=== PATIENT | female | born 1965 | race African-American/Black ===

== ENCOUNTER 2018-07-24 11:01 | Inpatient (IN) | payer OTHER ==
[2018-07-24 11:30] VITALS: BMI 19.5
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
[2018-07-24] MEDS ORDERED: LOPERAMIDE HCL 2 MG CAPSULE PO PRN (15:30)
[2018-07-24] MEDS ORDERED: NICOTINE POLACRILEX 4 MG GUM BC PRN (15:30)
[2018-07-24] MEDS ORDERED: MAGNESIUM CITRATE 300 ML BOTTLE PO PRN (15:30)
[2018-07-24] MEDS ORDERED: MENTHOL/PHENOL 1 EACH UD MM PRN (15:30)
[2018-07-24] MEDS ORDERED: MAGNESIUM HYDROX 2400MG/30ML ORAL SUSPENSION 30 ML CUP PO PRN (15:30)
[2018-07-24] MEDS ORDERED: chlordiazePOXIDE HCL 25 MG CAPSULE PO PRN (15:30)
[2018-07-24] MEDS ORDERED: IBUPROFEN 400 MG TABLET (FP) PO PRN (15:30)
[2018-07-24] MEDS ORDERED: P-EPHED 60MG/TRIPROLIDI 2.5MG TABLET PO PRN (15:30)
[2018-07-24] MEDS ORDERED: ACETAMINOPHEN 325 MG TABLET (FP) PO PRN (15:30)
[2018-07-24] MEDS ORDERED: MAG HYDROX/AL HYDROX/SIMETH 30 ML UNIT-DOSE CUP PO PRN (15:30)
[2018-07-24] MEDS ORDERED: hydrOXYzine PAMOATE 25 MG CAPSULE (FP) PO PRN (15:30)
[2018-07-24] MEDS ORDERED: METHADONE HCL 10 MG TABLET (FOR DETOX USE ONLY) PO ONE ×2 (16:45→23:00)
[2018-07-24] MEDS: chlordiazePOXIDE HCL 25 MG CAPSULE PO SCH ×2 (16:54→22:25)
[2018-07-24] MEDS ORDERED: MELATONIN 5 MG TABLETS PO PRN (22:00)
[2018-07-24] MEDS: THIAMINE HCL 100 MG TABLET (FP) PO SCH (22:24)
[2018-07-24] MEDS: guaiFENesin/D-METHORPHAN HB 10 ML UNIT-DOSE CUPS PO PRN (22:25)
[2018-07-25] MEDS: chlordiazePOXIDE HCL 25 MG CAPSULE PO SCH ×4 (06:36→22:44)
[2018-07-25] MEDS: ALBUTEROL SO4 8 GM HFA INHALER IH PRN ×3 (07:40→22:44)
[2018-07-25] MEDS ORDERED: METHADONE HCL 10 MG TABLET (FOR DETOX USE ONLY) PO SCH (10:00)
[2018-07-25 11:04] LABS: HEMATOCRIT 38.8 % (32.4-45.2); HEMOGLOBIN 13.2 GM/dL (10.7-15.3); MCH 30.8 pg (25.7-33.7); MCHC 34.1 g/dl (32.0-36.0); MEAN CELL VOLUME 90.2 fl (80-96); MEAN PLT VOLUME 7.4 fl (7.5-11.1); PLATELET COUNT 295 K/MM3 (134-434); RDW 13.4 % (11.6-15.6)
[2018-07-25 11:21] LABS: ALK PHOS 108 U/L (45-117); ANION GAP 3 MMOL/L (8-16); BILIRUBIN,TOTAL 0.3 mg/dL (0.2-1); BLOOD UREA NITROGEN 19 mg/dL (7-18); CALCIUM 9.7 mg/dL (8.5-10.1); CHLORIDE 100 mmol/L (98-107); CO2 33 mmol/L (21-32); GLUCOSE,RANDOM 77 mg/dL (74-106); POTASSIUM 4.2 mmol/L (3.5-5.1); SGOT/AST 19 U/L (15-37); SGPT/ALT 17 U/L (13-61); SODIUM 137 mmol/L (136-145); TOT PROT 7.5 g/dl (6.4-8.2)
[2018-07-25 11:32] LABS: URINE APPEARANCE TURBID; URINE BILIRUBIN NEGATIVE (<2.0 mg/dL); URINE GLUCOSE (UA) NEGATIVE (NEGATIVE); URINE KETONE NEGATIVE (NEGATIVE); URINE LEUK ESTERASE 2+ (NEGATIVE); URINE NITRITE NEGATIVE (NEGATIVE); URINE PROTEIN NEGATIVE (NEGATIVE)
[2018-07-25] MEDS: PRENATAL VITAMINS W/ FOLIC ACID TABLET (FP) PO SCH (11:32)
[2018-07-25] MEDS: NICOTINE 21 MG/24 HOURS TOPICAL PATCH TD SCH (11:33)
[2018-07-25 11:36] LABS: URINE COLOR DK YELLOW
[2018-07-25 11:38] LABS: CALCIUM OXALATE CRYSTALS RARE /hpf (NONE SEEN); EPI CELLS RARE /HPF (FEW); URINE BACTERIA MANY /hpf (NONE SEEN); URINE MUCUS RARE
[2018-07-25] MEDS ORDERED: FLU VACCINE QUAD 60 MCG/0.5 ML (MDV 18-19) IM ONE (12:00)
--- NOTE | 2018-07-25 13:25 | EKG ---
Test Reason : Blood Pressure : / mmHG Vent. Rate : 092 BPM Atrial Rate : 092 BPM P-R Int : 126 ms QRS Dur : 080 ms QT Int : 378 ms P-R-T Axes : 078 068 062 degrees QTc Int : 467 ms NORMAL SINUS RHYTHM POSSIBLE LEFT ATRIAL ENLARGEMENT NONSPECIFIC ST ABNORMALITY NO PREVIOUS ECGS AVAILABLE Confirmed by KAELYN HOBSON MD ([id number]) on 07/25/2018 1:25:16 PM Referred By: Confirmed By:KAELYN HOBSON MD
--- NOTE | 2018-07-25 15:12 | PN ---
S CIWA - CIWA Score Nausea/Vomitin Muscle Tremors: 2 Anxiety: 2 Agitation: 2 Paroxysmal Sweats: 2 Orientation: 0-Oriented Tacttile Disturbances: 2-Mild Itch/Numbness/Burn Auditory Disturbances: 0-None Visual Disturbances: 0-None Headache: 1-Very Mild CIWA-Ar Total Score: 13 BHS COWS - Scale Resting Pulse: 0= [place] 80 or Below Sweatin=Flushed/Facial Moisture Restless Observation: 1= Difficult to Sit Still Pupil Size: 0= Normal to Room Light Bone or Joint Aches: 1= Mild Discomfort Runny Nose/ Eye Tearin= Runny Nose/Eyes GI Upset > 30mins: 2= Nausea/Diarrhea Tremor Observation of Outstretched Hands: 1= Tremor [place], Not Seen Yawning Observation: 1= 1-2x During Session Anxiety or Irritability: 1=Feels Anxious/Irritable Goose Flesh Skin: 0=Smooth Skin COWS Score: 11 S Progress Note (SOAP) Subjective: Sweats, tremors, abdominal cramps Objective: 07/25/18 15:10 Vital Signs 07/25/18 07/25/18 09:51 14:59 Temperature 98.2 F 98.1 F Pulse Rate 66 69 Respiratory 19 18 Rate Blood Pressure 95/56 L 113/60 Laboratory Last Values WBC 8.0 K/mm3 (4.0-10.0) 07/25/18 05:40 RBC 4.30 M/mm3 (3.60-5.2) 07/25/18 05:40 Hgb 13.2 GM/dL (10.7-15.3) 07/25/18 05:40 Hct 38.8 % (32.4-45.2) 07/25/18 05:40 MCV 90.2 fl (80-96) 07/25/18 05:40 MCH 30.8 pg (25.7-33.7) 07/25/18 05:40 MCHC 34.1 g/dl (32.0-36.0) 07/25/18 05:40 RDW 13.4 % (11.6-15.6) 07/25/18 05:40 Plt Count 295 K/MM3 (134-434) 07/25/18 05:40 MPV 7.4 fl (7.5-11.1) L 07/25/18 05:40 Sickle Cell Screen Negative (NEGATIVE) 07/24/18 15:54 Sodium 137 mmol/L (136-145) 07/25/18 05:40 Potassium 4.2 mmol/L (3.5-5.1) 07/25/18 05:40 Chloride 100 mmol/L (98-107) 07/25/18 05:40 Carbon Dioxide 33 mmol/L (21-32) H 07/25/18 05:40 Anion Gap 3 MMOL/L (8-16) L 07/25/18 05:40 BUN 19 mg/dL (7-18) H 07/25/18 05:40 Creatinine 1.0 mg/dL (0.55-1.3) 07/25/18 05:40 Creat Clearance w eGFR 58.22 (>60) 07/25/18 05:40 Random Glucose 77 mg/dL (74-106) 07/25/18 05:40 Calcium 9.7 mg/dL (8.5-10.1) 07/25/18 05:40 Total Bilirubin 0.3 mg/dL (0.2-1) 07/25/18 05:40 AST 19 U/L (15-37) 07/25/18 05:40 ALT 17 U/L (13-61) 07/25/18 05:40 Alkaline Phosphatase 108 U/L (45-117) 07/25/18 05:40 Total Protein 7.5 g/dl (6.4-8.2) 07/25/18 05:40 Albumin 4.0 g/dl (3.4-5.0) 07/25/18 05:40 Urine Color Dk yellow 07/25/18 08:50 Urine Appearance Turbid 07/25/18 08:50 Urine pH 5.0 (5.0-8.0) 07/25/18 08:50 Ur Specific [place] 1.029 (1.010-1.035) 07/25/18 08:50 Urine Protein Negative (NEGATIVE) 07/25/18 08:50 Urine Glucose (UA) Negative (NEGATIVE) 07/25/18 08:50 Urine Ketones Negative (NEGATIVE) 07/25/18 08:50 Urine Blood Negative (NEGATIVE) 07/25/18 08:50 Urine Nitrite Negative (NEGATIVE) 07/25/18 08:50 Urine Bilirubin Negative (<2.0 mg/dL) 07/25/18 08:50 Urine Urobilinogen 2.0 mg/dL (0.2-1.0) H 07/25/18 08:50 Ur Leukocyte Esterase 2+ (NEGATIVE) H 07/25/18 08:50 Urine WBC (Auto) 14 /hpf (3-5) 07/25/18 08:50 Urine RBC (Auto) 3 /hpf (0-3) 07/25/18 08:50 Ur Epithelial Cells Rare /HPF (FEW) 07/25/18 08:50 Calcium Oxalate Crystal Rare /hpf (NONE SEEN) 07/25/18 08:50 Urine Bacteria Many /hpf (NONE SEEN) 07/25/18 08:50 Urine Mucus Rare 07/25/18 08:50 RPR Titer Nonreactive (NONREACTIVE) 07/25/18 05:40 HIV 1&2 Antibody Screen Negative 07/24/18 15:54 HIV P24 Antigen Negative 07/24/18 15:54 Labs noted-no panic values Assessment: 07/25/18 15:11 Withdrawal sx Plan: Continue detox
[2018-07-25] MEDS: THIAMINE HCL 100 MG TABLET (FP) PO SCH (22:44)
[2018-07-26] MEDS: ALBUTEROL SO4 8 GM HFA INHALER IH PRN ×2 (04:04→18:15)
[2018-07-26] MEDS: chlordiazePOXIDE HCL 25 MG CAPSULE PO SCH ×2 (06:09→10:33)
[2018-07-26] MEDS: NICOTINE 21 MG/24 HOURS TOPICAL PATCH TD SCH (10:32)
[2018-07-26] MEDS: PRENATAL VITAMINS W/ FOLIC ACID TABLET (FP) PO SCH (10:33)
[2018-07-26] MEDS: METHADONE HCL 5 MG TABLET (FOR DETOX USE ONLY) PO SCH (10:33)
--- NOTE | 2018-07-26 18:14 | PN ---
[facility] CIWA - CIWA Score Nausea/Vomitin-Mild Nausea/No Vomiting Muscle Tremors: 3 Anxiety: 2 Agitation: 2 Paroxysmal Sweats: 3 Orientation: 0-Oriented Tacttile Disturbances: 0-None Auditory Disturbances: 0-None Visual Disturbances: 0-None Headache: 0-None Present CIWA-Ar Total Score: 11 S COWS - Scale Resting Pulse: 0= [place] 80 or Below Sweatin= Chills/Flushing Restless Observation: 1= Difficult to Sit Still Pupil Size: 0= Normal to Room Light Bone or Joint Aches: 2= Severe Diffuse Aches Runny Nose/ Eye Tearin= None GI Upset > 30mins: 2= Nausea/Diarrhea Tremor Observation of Outstretched Hands: 2= Slight Tremor Visible Yawning Observation: 0= None Anxiety or Irritability: 2=Irritable/Anxious Goose Flesh Skin: 0=Smooth Skin COWS Score: 10 S Progress Note (SOAP) Subjective: Sweating, interrupted sleep, anxious Objective: 07/26/18 18:11 Last Vital Signs Temp Pulse Resp BP Pulse Ox 98.4 F 79 16 136/89 07/26/18 17:42 07/26/18 17:42 07/26/18 17:42 07/26/18 17:42 Laboratory Tests 07/24/18 07/24/18 07/25/18 15:54 15:54 05:40 WBC 8.0 RBC 4.30 Hgb 13.2 Hct 38.8 MCV 90.2 MCH 30.8 MCHC 34.1 RDW 13.4 Plt Count 295 MPV 7.4 L Sickle Cell Screen Negative Sodium Potassium Chloride Carbon Dioxide Anion Gap BUN Creatinine Creat Clearance w eGFR Random Glucose Calcium Total Bilirubin AST ALT Alkaline Phosphatase Total Protein Albumin Urine Color Urine Appearance Urine pH Ur Specific [place] Urine Protein Urine Glucose (UA) Urine Ketones Urine Blood Urine Nitrite Urine Bilirubin Urine Urobilinogen Ur Leukocyte Esterase Urine WBC (Auto) Urine RBC (Auto) Ur Epithelial Cells Calcium Oxalate Crystal Urine Bacteria Urine Mucus RPR Titer HIV 1&2 Antibody Screen Negative HIV P24 Antigen Negative 07/25/18 07/25/18 07/25/18 05:40 05:40 08:50 WBC RBC Hgb Hct MCV MCH MCHC RDW Plt Count MPV Sickle Cell Screen Sodium 137 Potassium 4.2 Chloride 100 Carbon Dioxide 33 H Anion Gap 3 L BUN 19 H Creatinine 1.0 Creat Clearance w eGFR 58.22 Random Glucose 77 Calcium 9.7 Total Bilirubin 0.3 AST 19 ALT 17 Alkaline Phosphatase 108 Total Protein 7.5 Albumin 4.0 Urine Color Dk yellow Urine Appearance Turbid Urine pH 5.0 Ur Specific [place] 1.029 Urine Protein Negative Urine Glucose (UA) Negative Urine Ketones Negative Urine Blood Negative Urine Nitrite Negative Urine Bilirubin Negative Urine Urobilinogen 2.0 H Ur Leukocyte Esterase 2+ H Urine WBC (Auto) 14 Urine RBC (Auto) 3 Ur Epithelial Cells Rare Calcium Oxalate Crystal Rare Urine Bacteria Many Urine Mucus Rare RPR Titer Nonreactive HIV 1&2 Antibody Screen HIV P24 Antigen Labs reviewed: abnormal UA and prerenal azotemia noted Assessment: 07/26/18 18:12 Withdrawal symptoms Prerenal azotemia and abnormal UA noted Plan: Continue detox Prerenal azotemia: encouraged PO water hydration Abnormal UA: repeat UA
[2018-07-26] MEDS: chlordiazePOXIDE 5 MG CAPSULE PO SCH ×2 (18:15→23:00)
[2018-07-26] MEDS: guaiFENesin/D-METHORPHAN HB 10 ML UNIT-DOSE CUPS PO PRN (18:16)
[2018-07-26] MEDS: THIAMINE HCL 100 MG TABLET (FP) PO SCH (23:00)
[2018-07-27] MEDS: chlordiazePOXIDE 5 MG CAPSULE PO SCH ×2 (05:39→10:25)
[2018-07-27] MEDS: guaiFENesin/D-METHORPHAN HB 10 ML UNIT-DOSE CUPS PO PRN ×2 (05:41→22:14)
[2018-07-27] MEDS: ALBUTEROL SO4 8 GM HFA INHALER IH PRN ×2 (05:43→22:14)
[2018-07-27] MEDS: PRENATAL VITAMINS W/ FOLIC ACID TABLET (FP) PO SCH (10:25)
[2018-07-27] MEDS: METHADONE HCL 5 MG TABLET (FOR DETOX USE ONLY) PO SCH (10:25)
[2018-07-27] MEDS: NICOTINE 21 MG/24 HOURS TOPICAL PATCH TD SCH (10:27)
--- NOTE | 2018-07-27 12:44 | PN ---
[facility] Progress Note (SOAP) Subjective: restless feeling better little sweats Objective: 07/27/18 12:43 Vital Signs Temperature 97.9 F 07/27/18 09:33 Pulse Rate 69 07/27/18 09:33 Respiratory Rate 16 07/27/18 09:33 Blood Pressure 100/62 07/27/18 09:33 O2 Sat by Pulse Oximetry (%) aaox3 ambulating no acute distress Assessment: 07/27/18 12:43 mild withdrawal sx Plan: continue detox d/c in am
[2018-07-27] MEDS: chlordiazePOXIDE HCL 10 MG CAPSULE PO SCH ×2 (17:58→22:14)
[2018-07-27] MEDS: THIAMINE HCL 100 MG TABLET (FP) PO SCH (22:14)
[2018-07-28] MEDS: chlordiazePOXIDE HCL 10 MG CAPSULE PO SCH ×2 (05:26→10:15)
[2018-07-28] MEDS ORDERED: METHADONE HCL 10 MG TABLET (FOR DETOX USE ONLY) PO SCH (10:00)
[2018-07-28] MEDS: PRENATAL VITAMINS W/ FOLIC ACID TABLET (FP) PO SCH (10:14)
[2018-07-28] MEDS: NICOTINE 21 MG/24 HOURS TOPICAL PATCH TD SCH (10:15)
[2018-07-28] MEDS: ALBUTEROL SO4 8 GM HFA INHALER IH PRN ×2 (10:16→22:23)
--- NOTE | 2018-07-28 10:39 | PN ---
[facility] Progress Note (SOAP) Subjective: sweats Objective: 07/28/18 10:38 Vital Signs Temperature 97.9 F 07/28/18 09:17 Pulse Rate 74 07/28/18 09:17 Respiratory Rate 18 07/28/18 09:17 Blood Pressure 131/61 07/28/18 09:17 O2 Sat by Pulse Oximetry (%) aaox3 ambulating no acute distress Assessment: 07/28/18 10:39 mild withdrawal sx Plan: continue detox increase fluids d/c in am
[2018-07-28] MEDS: THIAMINE HCL 100 MG TABLET (FP) PO SCH (22:23)
[2018-07-29] MEDS ORDERED: METHADONE HCL 5 MG TABLET (FOR DETOX USE ONLY) PO SCH (06:00)
--- NOTE | 2018-07-29 08:59 | DS ---
[facility] Detox Discharge Summary Admission Date: 07/24/18 Discharge Date: 07/29/18 - History Present History: Alcohol Dependence - Physical Exam Results Vital Signs: Vital Signs Temperature 97.5 F L 07/29/18 08:29 Pulse Rate 69 07/29/18 08:29 Respiratory Rate 18 07/29/18 08:29 Blood Pressure 98/60 07/29/18 08:29 O2 Sat by Pulse Oximetry (%) - Treatment Hospital Course: Detox Protocol Followed, Detoxed Safely, Responded well, Discharged Condition Good, Rehab Referral Accepted - Medication Discharge Medications: Ambulatory Orders Albuterol Sulfate Inhaler - [Ventolin Hfa Inhaler -] 2 inh PO Q4H PRN 07/24/18 - Diagnosis (1) Abnormal finding on urinalysis Current Visit: Yes Status: Acute (2) Acute prerenal azotemia Current Visit: Yes Status: Acute (3) Uncomplicated alcohol withdrawal Current Visit: Yes Status: Acute (4) Uncomplicated opioid dependence Current Visit: Yes Status: Chronic (5) Asthma Current Visit: Yes Status: Chronic Qualifiers: Asthma severity: mild Asthma persistence: intermittent (6) Chronic alcoholism Current Visit: Yes Status: Chronic (7) Crack cocaine use Current Visit: Yes Status: Chronic (8) GERD (gastroesophageal reflux disease) Current Visit: Yes Status: Chronic Qualifiers: Esophagitis presence: without esophagitis Qualified Code(s): K21.9 - Gastro -esophageal reflux disease without esophagitis (9) Heroin use disorder, moderate, dependence Current Visit: Yes Status: Chronic - AMA Did Patient Leave Against Medical Advice: No ([facility])
[2018-07-29 09:29] VITALS: BP 113/62; PULSE 71; TEMP 98.6
[2018-07-29] MEDS: NICOTINE 21 MG/24 HOURS TOPICAL PATCH TD SCH (10:27)
[2018-07-29] MEDS: PRENATAL VITAMINS W/ FOLIC ACID TABLET (FP) PO SCH (10:27)
[2018-07-29 12:52] LABS: URINE APPEARANCE CLOUDY; URINE BILIRUBIN NEGATIVE (<2.0 mg/dL); URINE COLOR YELLOW; URINE GLUCOSE (UA) NEGATIVE (NEGATIVE); URINE KETONE NEGATIVE (NEGATIVE); URINE LEUK ESTERASE 3+ (NEGATIVE); URINE NITRITE NEGATIVE (NEGATIVE); URINE PROTEIN NEGATIVE (NEGATIVE); URINE UROBILINOGEN NEGATIVE mg/dL (0.2-1.0)
[2018-07-29 13:15] LABS: CALCIUM OXALATE CRYSTALS RARE /hpf (NONE SEEN); EPI CELLS MANY /HPF (FEW); URINE MUCUS RARE
--- NOTE | 2018-08-25 11:42 | EKG ---
Test Reason : Blood Pressure : / mmHG Vent. Rate : 073 BPM Atrial Rate : 073 BPM P-R Int : 120 ms QRS Dur : 076 ms QT Int : 378 ms P-R-T Axes : 022 054 062 degrees QTc Int : 416 ms POOR DATA QUALITY, INTERPRETATION MAY BE ADVERSELY AFFECTED NORMAL SINUS RHYTHM NORMAL ECG WHEN COMPARED WITH ECG OF 24-JUL-2018 16:00, NO SIGNIFICANT CHANGE WAS FOUND Confirmed by Saul Ramos MD ([id number]) on 08/25/2018 11:41:58 AM Referred By: Confirmed By:Saul Ramos MD
== END 2018-07-29 12:16 | disposition home or self-care (01) | DRG 773 ==
LOC: YASAS 11:01 → Y6N 15:38
PROVIDERS: ADMIT Neuromusculoskeletal Medicine & OMM; ATTEND Neuromusculoskeletal Medicine & OMM
PROC: HZ2ZZZZ Detoxification Services for Substance Abuse Treatment (ICD-10-PCS; principal; 2018-07-27)
DX: F11.23 Opioid dependence with withdrawal (principal); F10.230 Alcohol dependence with withdrawal, uncomplicated; F14.20 Cocaine dependence, uncomplicated; F17.210 Nicotine dependence, cigarettes, uncomplicated; J45.909 Unspecified asthma, uncomplicated; R82.90 Unspecified abnormal findings in urine; R79.89 Other specified abnormal findings of blood chemistry; K21.9 Gastro-esophageal reflux disease without esophagitis; Z88.0 Allergy status to penicillin; Z59.0 Homelessness
CPT/HCPCS: 36415; 80053; 81003; 81015; 85027; 85660; 86593; 87389; 90688; 93005; 93010; G0008